=== PATIENT | male | born 1995 | race Caucasian/White ===

== ENCOUNTER → 2018-02-11 | Emergency (ER) | payer OTHER ==
[~2018-02-11] VITALS: Ht 175.3 cm; Wt 74.8 kg
[~2018-02-11] MED LIST: LACTATED RINGERS 1,000 ML IV ONE; ONDA4TAB8 PO; ONDANSETRON 4 MG/2 ML (SDV) Z0FRAN IVP ONE; ONDANSETRON 4 MG/2 ML (SDV) Z0FRAN ONE; RX-ONDANSETRON 4 MG ODT (ZOFRAN) PPK #4 PO STA
--- OUTSIDE RECORDS SUMMARY | 2018-02-11 22:42 | XMS REPORT ---
Author Author [facility] Medical Staff Organization [facility] Address [address] [place], [place] [address] Phone [phone] Care Team Providers Care Assistant Boys Track Coach Name Role Phone HERNANDEZ MCMULLEN, SUKI ENGLE [phone] Summary purpose TRANSITION OF CARE AUTO GENERATION Chief Complaint and Reason for Visit Admit Diagnosis 1 OTHER INJURY OF CHEST [place] Problem list No authorized problems tracked for continuity of care are available for this visit. Encounters No authorized problems tracked for encounter diagnoses are available for this visit. Medications No home medications recorded for this patient visit Allergies, adverse reactions, alerts Allergen Category Ingredient Status Reaction Severity Onset NONE Food Allergy NONE Confirmed or Verified No known drug allergies No known drug allergies No known drug allergies Confirmed or Verified Immunizations No immunizations recorded for this patient visit Relevant diagnostic tests and/or laboratory data RESULTS Routine Urinalysis [id number]:15:00 Result Normal Range Units Color YELLOW Clarity Cloudy Specific [place] 1.028 1.003-1.035 Refractometer Result pH 6.0 4.5-8.0 Glucose NEGATIVE Bilirubin NEGATIVE Ketones 1+ Protein TRACE Urobilinogen 0.2 0-0.2 E.U./dL Nitrites NEGATIVE Blood TRACE Leukocytes Trace WBCs 5-10 RBCs 5-10 Squamous Epithelial 1+ Bacteria 1+ Fine Granular Casts Occasional Routine Cultures [id number]:32:00 Urine Culture Plate Date and Time 02/14/2014 22:32 SourceURINE CULTURE REPORT No Growth After 24 Hours Release Date/Time: 02/16/2014 07:36 CULTURE REPORT No Growth After 48 Hours Release Date/Time: 02/17/2014 07:14 Body Fluid [id number]:15:00 Result Normal Range Units pH 6.0 4.5-8.0 Radiology Results [id number]:37:00 Chest X-Ray - 1 View PACs Image DATE OF EXAM: 2013 RAD 0284-CHEST XRAY 1 VIEW : RADIOLOGY REPORT DATE OF SERVICE: 02/14/14 HISTORY:Multiple injuries. AP CHEST 2230 HOURS The lungs are clear. There is no pneumothorax or pleural effusion. Heart size and pulmonary vessels are normal. The mediastinal contours are normal. IMPRESSION: Normal chest. MD EMIR Mooyd/gc02/15/2014 06:52:00 / 02/15/2014 08:42:22 cc:Dr. Suki Diaz DATE OF EXAM: 2013 RAD 1308-RIB [id number] VIEW : HISTORY: \ IMPRESSION: \ This document has been electronically Signed by: On: DATE OF EXAM: 2013 RAD 0284-CHEST XRAY 1 VIEW : RADIOLOGY REPORT DATE OF SERVICE: 02/14/14 HISTORY:Multiple injuries. AP CHEST 2230 HOURS The lungs are clear. There is no pneumothorax or pleural effusion. Heart size and pulmonary vessels are normal. The mediastinal contours are normal. IMPRESSION: Normal chest. MD EMIR Moody/gc02/15/2014 06:52:02/15/2014 08:42:22 cc:Dr. Suki Diaz DATE OF EXAM: 2013 RAD 1308-RIB [id number] VIEW : HISTORY: \ IMPRESSION: \ This document has been electronically Signed by: On: DATE OF EXAM: 2013 RAD 0284-CHEST XRAY 1 VIEW : RADIOLOGY REPORT DATE OF SERVICE: 02/14/14 HISTORY:Multiple injuries. AP CHEST 2230 HOURS The lungs are clear. There is no pneumothorax or pleural effusion. Heart size and pulmonary vessels are normal. The mediastinal contours are normal. IMPRESSION: Normal chest. MD EMIR Moody/gc02/15/2014 06:52:02/15/2014 08:42:22 cc:Dr. Suki Diaz DATE OF EXAM: 2013 RAD 1308-RIB [id number] VIEW : HISTORY: \ IMPRESSION: \ This document has been electronically Signed by: DERIC BARBOZA On: [id number] Result Amended on 2014-02-17 at 08:18:33. Previous status was MI. Result Amended on 2014-02-17 at 09:37:43. Previous status was MI. LUMBAR SPINE XRAY - 5V PACs Image DATE OF EXAM: 2013 RAD 1050-LUMBAR SPINE XRAY-5 VIEW : RADIOLOGY REPORT DATE OF SERVICE: 02/14/14 HISTORY: Multiple injuries. LUMBAR SPINE 5 VIEWS 2315 HOURS The lumbar vertebrae are normal in height and alignment. There is no fracture or subluxation. The disc spaces and facets are normal. The upper sacrum is unremarkable. IMPRESSION: Negative left ribs. MD EMIR Moody/gc02/15/2014 06:52:00 / 02/15/2014 08:43:59 cc:Dr. Suki Diaz This document has been electronically Signed by: On: DATE OF EXAM: 2013 RAD 1050-LUMBAR SPINE XRAY-5 VIEW : RADIOLOGY REPORT DATE OF SERVICE: 02/14/14 HISTORY: Multiple injuries. LUMBAR SPINE 5 VIEWS 2315 HOURS The lumbar vertebrae are normal in height and alignment. There is no fracture or subluxation. The disc spaces and facets are normal. The upper sacrum is unremarkable. IMPRESSION: Negative left ribs. MD EMIR Moody/gc02/15/2014 06:52:00 02/15/2014 08:43:59 cc:Dr. Suki Diaz This document has been electronically Signed by: On: DATE OF EXAM: 2013 RAD 1050-LUMBAR SPINE XRAY-5 VIEW : RADIOLOGY REPORT DATE OF SERVICE: 02/14/14 HISTORY: Multiple injuries. LUMBAR SPINE 5 VIEWS 2315 HOURS The lumbar vertebrae are normal in height and alignment. There is no fracture or subluxation. The disc spaces and facets are normal. The upper sacrum is unremarkable. IMPRESSION: Negative left ribs. MD EMIR Moody/gc02/15/2014 06:52:00 02/15/2014 08:43:59 cc:Dr. Suki Diaz This document has been electronically Signed by: DERIC BARBOZA On: [id number]:37A Result Amended on 2014-02-17 at 08:20:35. Previous status was MI. Result Amended on 2014-02-17 at 09:37:51. Previous status was MI. RIB XRAYS - UNILAT 3 VIEW PACs Image DATE OF EXAM: 2013 RAD 0284-CHEST XRAY 1 VIEW : RADIOLOGY REPORT DATE OF SERVICE: 02/14/14 HISTORY:Multiple injuries. AP CHEST 2230 HOURS The lungs are clear. There is no pneumothorax or pleural effusion. Heart size and pulmonary vessels are normal. The mediastinal contours are normal. IMPRESSION: Normal chest. MD EMIR Moody/gc02/15/2014 06:52:02/15/2014 08:42:22 cc:Dr. Suki Diaz DATE OF EXAM: 2013 RAD 1308-RIB [id number] VIEW : HISTORY: \ IMPRESSION: \ This document has been electronically Signed by: On: DATE OF EXAM: 2013 RAD 0284-CHEST XRAY 1 VIEW : RADIOLOGY REPORT DATE OF SERVICE: 02/14/14 HISTORY:Multiple injuries. AP CHEST 2230 HOURS The lungs are clear. There is no pneumothorax or pleural effusion. Heart size and pulmonary vessels are normal. The mediastinal contours are normal. IMPRESSION: Normal chest. MD EMIR Moody/gc02/15/2014 06:52:02/15/2014 08:42:22 cc:Dr. Suki Diaz DATE OF EXAM: 2013 RAD 1308-RIB [id number] VIEW : HISTORY: \ IMPRESSION: \ This document has been electronically Signed by: On: DATE OF EXAM: 2013 RAD 1308-RIB [id number] VIEW : RADIOLOGY REPORT DATE OF SERVICE: 02/14/14 HISTORY:Rib injury. LEFT RIBS 3 VIEWS 2230 HOURS The ribs are normal and intact. There is no fracture. There is no periosteal reaction. IMPRESSION: Negative left ribs. MD EMIR Moody/gc02/15/2014 06:52:00 02/15/2014 08:43:10 cc:Dr. Suki Diaz This document has been electronically Signed by: On: DATE OF EXAM: 2013 RAD 1308-RIB [id number] VIEW : RADIOLOGY REPORT DATE OF SERVICE: 02/14/14 HISTORY:Rib injury. LEFT RIBS 3 VIEWS 2230 HOURS The ribs are normal and intact. There is no fracture. There is no periosteal reaction. IMPRESSION: Negative left ribs. MD EMIR Moody/gc02/15/2014 06:52:00 / 02/15/2014 08:43:10 cc:Dr. Suki Diaz This document has been electronically Signed by: On: DATE OF EXAM: 2013 RAD 1308-RIB [id number] VIEW : RADIOLOGY REPORT DATE OF SERVICE: 02/14/14 HISTORY:Rib injury. LEFT RIBS 3 VIEWS 2230 HOURS The ribs are normal and intact. There is no fracture. There is no periosteal reaction. IMPRESSION: Negative left ribs. MD EMIR Moody/gc02/15/2014 06:52:00 / 02/15/2014 08:43:10 cc:Dr. Suki Diaz This document has been electronically Signed by: DERIC BARBOZA On: 20139:37A Result Amended on 2014-02-17 at 08:18:35. Previous status was MI. Result Amended on 2014-02-17 at 08:19:01. Previous status was MI. Result Amended on 2014-02-17 at 08:19:02. Previous status was MI. Result Amended on 2014-02-17 at 09:37:49. Previous status was MI. History of procedures Procedure Code Code Type Description Date Performed Performing Physician 49706 CPT-4 X-RAY EXAM OF RIBS/CHEST 02-14-2014 [facility] 25843 CPT-4 URINALYSIS, AUTO W/SCOPE 02-14-2014 [facility] 22814 CPT-4 URINE CULTURE/COLONY COUNT 02-14-2014 [facility] 18707 CPT-4 X-RAY EXAM OF LOWER SPINE 02-14-2014 [facility] J2360 CPT-4 ORPHENADRINE INJECTION 02-14-2014 [facility] 90991 CPT-4 EMERGENCY DEPT VISIT 02-14-2014 [facility] 25830 CPT-4 THER/PROPH/DIAG INJ, SC/IM 02-14-2014 [facility] 37088 CPT-4 EMERGENCY DEPT VISIT 02-14-2014 [facility] Functional status No functional or cognitive status observations are available for this visit. Vital signs Type Value Date Respiration Rate 20breaths per minute 85-77-248043:00 Pulse 68beats per minute :00 Oxygen Saturation 100% :00 BP Systolic 131mmHg :00 BP Diastolic 56mmHg :00 Temperature 97.4F : Social history No Social History or smoking status observations were recorded for this visit. ( Unknown if ever smoked.) Treatment Plan No treatment plan text is available for this visit. Hospital discharge instructions Dismissal Condition good Disposition on DC home DC Inst/Educ Give yes Med/Side Effects Rev yes
--- OUTSIDE RECORDS SUMMARY | 2018-02-11 22:42 | XMS REPORT ---
Author Author [facility] Medical Staff Organization [facility] Address [address] [place], [place] [address] Phone [phone] Care Team Providers Care Garment Inspector Name Role Phone SUKI NG MD PP [phone] Summary purpose TRANSITION OF CARE AUTO GENERATION Chief Complaint and Reason for Visit No authorized Reason for Visit (Admitting Diagnosis) is available for this visit. Problem list No authorized problems tracked for [...] Relevant diagnostic tests and/or laboratory data RESULTS Radiology Results [id number]:26:00 Chest X-Ray - 2 View PACs Image DATE OF EXAM: Feb 09 2014 RAD 0300-CHEST XRAY 2 VIEW : RADIOLOGY REPORT DATE OF SERVICE: 02/09/14 HISTORY: Patient has chest pain. CHEST 2 VIEWS 2350 HOURS Heart and mediastinum are normal. The lungs are clear. No effusion is seen. IMPRESSION: Negative study of the chest unchanged from 03/30/2009. DO Tamiko Dean 02/10/2014 08:18:00 / 02/10/2014 08:45:22 cc:Dr. Suki Ng This document has been electronically Signed by: On: DATE OF EXAM: Feb 09 2014 RAD 0300-CHEST XRAY 2 VIEW : RADIOLOGY REPORT DATE OF SERVICE: 02/09/14 HISTORY: Patient has chest pain. CHEST 2 VIEWS 2350 HOURS Heart and mediastinum are normal. The lungs are clear. No effusion is seen. IMPRESSION: Negative study of the chest unchanged from 03/30/2009. DO Tamiko Dean 02/10/2014 08:18: / 02/10/2014 08:45:22 cc:Dr. Suki Ng This document has been electronically Signed by: On: DATE OF EXAM: Feb 09 2014 RAD 0300-CHEST XRAY 2 VIEW : RADIOLOGY REPORT DATE OF SERVICE: 02/09/14 HISTORY: Patient has chest pain. CHEST 2 VIEWS 2350 HOURS Heart and mediastinum are normal. The lungs are clear. No effusion is seen. IMPRESSION: Negative study of the chest unchanged from 03/30/2009. Tanner Whitmore DO /co 02/10/2014 08:18:00 / 02/10/2014 08:45:22 cc:Dr. Suki Ng This document has been electronically Signed by: TANNER WHITMORE DO On: Feb 10 2014 12:26P Result Amended on 2014-02-10 at 09:40:44. Previous status was CT. Result Amended on 2014-02-10 at 12:26:49. Previous status was CT. History of procedures No procedures recorded for this patient visit. Functional status No functional or cognitive status observations are available for this visit. Vital signs Type Value Date Respiration Rate 20breaths per minute :15 Pulse 56beats per minute :15 Oxygen Saturation 100% :15 BP Systolic 142mmHg :15 BP Diastolic 62mmHg :15 Temperature 98.8F 47-26-745212:15 Weight 141LB 98-33-793359:10 Social history Type Value Smoking Status NEVER SMOKER Treatment Plan No treatment plan text is available for this visit. Hospital discharge instructions Dismissal Condition good Disposition on DC home DC Inst/Educ Give yes Med/Side Effects Rev yes
--- OUTSIDE RECORDS SUMMARY | 2018-02-11 22:42 | XMS REPORT ---
Author Author Trevor Thibodeaux [facility] Address [address] [place], [place] [address] Care Team Providers Care Senior Tax Accountant Name Role Phone Trevor Thibodeaux PCP Unavailable Allergies and Adverse Reactions Name Reaction Notes No known allergies Plan of Treatment Not available. Medications Not available. Problem List Not available. Vital Signs Date Time BP-Sys(mm[Hg] BP-Adeline(mm[Hg]) HR(bpm) RR(rpm) Temp WT HT HC BMI BSA BMI Percentile O2 Sat(%) 10/25/2016 2:15:00 PM 106 mmHg 64 mmHg 64 bpm 18 rpm 99 F 161.5 lbs 69 in 23.85 kg/m2 1.89 m2 66.7 % 98 % Social History Name Description Comments Tobacco Never smoker lives with parents History of Procedures Not available. Results Summary Not available. History Of Immunizations Not available. History of Past Illness Name Date of Onset Comments No problems Left anterior shoulder pain Oct 25 2016 2:21PM Payers Insurance Name Company Name Plan Name Plan Number Policy Number Policy Group Number Start Date [employer]ign[employer] C[employer]a [id number] N/A History of Encounters Visit Date Visit Type Provider 10/25/2016 Office visit Trevor Thibodeaux NP
--- OUTSIDE RECORDS SUMMARY | 2018-02-11 22:42 | XMS REPORT ---
Author Author [facility] Medical Staff Organization [facility] Address [address] [place], [place] [address] Phone [phone] Care Team Providers Care Sheet Hanger Name Role Phone SUKI NG MD PP [phone] Summary purpose TRANSITION OF CARE AUTO GENERATION [...] tests and/or laboratory data RESULTS Radiology Results [id number]:26:00 Chest X-Ray - 2 View PACs Image [...] chest unchanged from 03/30/2009. Tanner Whitmore DO /mo 02/10/2014 08:18:00 / 02/10/2014 08:45:22 cc:Dr. Suki Ng This document has been electronically Signed by: TANNER WHITMORE DO On: Feb 10 2014 12:26P Result Amended on 2014-02-10 at 09:40:44. Previous status was SC. Result Amended on 2014-02-10 at 12:26:49. Previous status was SC. History of procedures No procedures recorded for this patient visit. Functional status No functional or cognitive status observations are available for this visit. Vital signs Type Value Date Respiration Rate 20breaths per minute :15 Pulse 56beats per minute :15 Oxygen Saturation 100% :15 BP Systolic 142mmHg :15 BP Diastolic 62mmHg :15 Temperature 98.8F 76-60-658872:15 Weight 141LB 68-38-051692:10 Social history Type Value Smoking Status NEVER SMOKER Treatment Plan No treatment plan text is available for this visit. Hospital discharge instructions Dismissal Condition good Disposition on DC home DC Inst/Educ Give yes Med/Side Effects Rev yes
--- OUTSIDE RECORDS SUMMARY | 2018-02-11 22:43 | XMS REPORT | Continuity of Care Document ---
Demographics x Preferred Language Unknown Marital Status Unknown Rastafari Affiliation Unknown Race Unknown Ethnic Group Unknown Author Author [facility] Organization [facility] Address Unknown Phone Unavailable Allergies Active Description Code Type Severity Reaction Onset Reported/Identified Relationship to Patient Clinical Status Yes No known drug allergies [id number] ND N/A N/A Yes NONE Food Allergy N/A N/A Medications There is no data. Problems There is no data. Procedures There is no data. Results Test Result Range UA - 02/14/14 00:00 PH 6.0 4.5-8.0 SG 1.028 1.003-1.035 UABILI NEGATIVE UABLD TRACE UACOLOR YEL UAGLU NEGATIVE UAKET 1+ UALEUK TR UANIT NEGATIVE UAURO 0.2 0-0.2 CLARITY CLD PROTEIN TRACE UA WBC R510 UA RBC R510 SQUAMOUS EPITHELIAL CELLS 1+ BACTERIA 1+ FINE GRANULAR CASTS OCC Encounters ACCT No. Visit Date/Time Discharge Status Pt. Type Provider Facility Loc./Unit Complaint [id number] 02/14/2014 21:46:00 02/14/2014 23:06:00 DIS Emergency SUKI NG [facility] EMR [id number] 02/09/2014 23:04:00 02/10/2014 00:18:00 DIS Emergency TANNER LOFTON [facility] EMR [id number] 09/08/2013 22:41:00 09/09/2013 01:05:00 DIS Emergency TANNER LOFTON [facility] EMR [id number] 08/02/2013 11:44:00 08/02/2013 12:55:00 DIS Emergency TABITHA PIERRE [facility] EMR [id number] 04/13/2013 00:00:00 Document Registration [email or web address] 02/14/2014 21:47:49 [place] Document Registration [id number] 10/25/2016 15:08:23 10/25/2016 23:59:59 [facility] Outpatient Trevor Thibodeaux
[2018-02-11 23:14] LABS: BASOPHILS % (AUTO) 0 % (0-10); EOSINOPHILS % (AUTO) 0 % (0-10); HEMATOCRIT 47 % (40-54); HEMOGLOBIN 16.5 G/DL (13.3-17.7); LYMPHOCYTES # (AUTO) 1.3 X 10^3 (1.0-4.0); LYMPHOCYTES % (AUTO) 11 % (12-44); MEAN CORPUSCULAR HEMOGLOBIN 32 PG (25-34); MEAN CORPUSCULAR HGB CONC 36 G/DL (32-36); MEAN CORPUSCULAR VOLUME 90 FL (80-99); MEAN PLATELET VOLUME 8.9 FL (7.4-10.4); MONOCYTES # (AUTO) 1.3 X 10^3 (0.0-1.0); MONOCYTES % (AUTO) 12 % (0-12); NEUTROPHILS % (AUTO) 78 % (42-75); PLATELET COUNT 278 10^3/uL (130-400); RED BLOOD COUNT 5.17 10^6/uL (4.35-5.85); RED CELL DISTRIBUTION WIDTH 12.4 % (10.0-14.5); WHITE BLOOD COUNT 11.6 10^3/uL (4.3-11.0)
[2018-02-11 23:30] LABS: ALANINE AMINOTRANSFERASE 44 U/L (0-55); ALBUMIN 5.1 GM/DL (3.2-4.5); ALKALINE PHOSPHATASE 88 U/L (40-136); AMYLASE 47 U/L (25-125); BILIRUBIN,TOTAL 0.9 MG/DL (0.1-1.0); BUN/CREATININE RATIO 12; CALCIUM 10.8 MG/DL (8.5-10.1); CARBON DIOXIDE 25 MMOL/L (21-32); CHLORIDE 103 MMOL/L (98-107); CREATININE SERUM 1.18 MG/DL (0.60-1.30); GFR ESTIMATED > 60; GLUCOSE 112 MG/DL (70-105); LIPASE 17 U/L (8-78); POTASSIUM 4.3 MMOL/L (3.6-5.0); SODIUM 143 MMOL/L (135-145); TOTAL PROTEIN 8.2 GM/DL (6.4-8.2)
[2018-02-12 00:42] LABS: BILIRUBIN,URINE NEGATIVE (NEGATIVE); CLARITY,URINE SLIGHTLY CLOUDY; COLOR,URINE AMBER; GLUCOSE, URINE (UA) NEGATIVE (NEGATIVE); KETONES,URINE 2+ (NEGATIVE); LEUKOCYTE ESTERASE ,URINE 1+ (NEGATIVE); NITRITE,URINE NEGATIVE (NEGATIVE); PH,URINE 6 (5-9); PROTEIN,URINE 1+ (NEGATIVE); UROBILINOGEN,URINE NORMAL (NORMAL)
[2018-02-12 00:51] LABS: BACTERIA,URINE LARGE /HPF; RBC,URINE RARE /HPF; SQUAMOUS EPITHELIAL CELL,UR RARE /HPF
[2018-02-12 00:56] LABS: AMPHETAMINE SCREEN, URINE NEGATIVE (NEGATIVE); BARBITURATE SCREEN URINE NEGATIVE (NEGATIVE); BENZODIAZEPINES SCREEN URINE NEGATIVE (NEGATIVE); CANNABINOID SCREEN, URINE NEGATIVE (NEGATIVE); COCAINE SCREEN URINE NEGATIVE (NEGATIVE); METHADONE STAT NEGATIVE (NEGATIVE); METHAMPHETAMINE SCREEN URINE S NEGATIVE (NEGATIVE); OPIATE SCREEN URINE NEGATIVE (NEGATIVE); OXYCODONE STAT NEGATIVE (NEGATIVE); PROPOXYPHENE STAT NEGATIVE (NEGATIVE); TRICYCLIC ANTIDEPRESSANTS SCRE NEGATIVE (NEGATIVE)
--- NOTE | 2018-02-12 01:57 | ED GI ---
General Chief Complaint: Abdominal/GI Problems Stated Complaint: VOMITING Nursing Triage Note: PT PRESENTS TO ER WITH COMPLAINT OF ABD PAIN, NAUSEA AND VOMITING THAT STARTED TODAY. STATES HE IS UNABLE TO KEEP ANYTHING DOWN. Sepsis Screen: No Definite Risk Source of Information: Patient History of Present Illness Date Seen by Provider: Feb 11, 2018 Time Seen by Provider: 22:59 Initial Comments PT ARRIVES VIA POV FROM HOME, WITH MOTHER C/O NAUSEA AND VOMITING ALL DAY, SINCE WAKING THIS AM HAS VOMITED UNKNOWN NUMBER OF TIMES, AND IS UNABLE TO KEEP WATER DOWN. NO DIARRHEA NO FEVER HAS ABDOMINAL CRAMPING JUST BEFORE HE THROWS UP, THEN CRAMPING GOES AWAY. NO ABDOMINAL PAIN AT ANY OTHER TIME C/O HEADACHE HAS NOT URINATED SINCE WAKING THIS AM NO KNOWN SICK CONTACTS OR SUSPICIOUS FOODS TOWARDS END OF ER STAY, PT STATES HE WAS AT A [employer] LAST NIGHT AND DRANK " JUST A COUPLE" OF DRINKS--STATES "10 OR SO" DRINKS.... PCP: DR. MICHAEL DICK--PT IS [employer] STUDENT HERE, LIVES IN HOUSE WITH ROOM MATE. Allergies and Home Medications Allergies Coded Allergies: No Known Drug Allergies (Unverified , 02/11/18) Home Medications Ondansetron 4 Mg Tab.rapdis, 4 MG PO Q4H Prescribed by: IMELDA BRITT on 02/12/18 0200 Patient Home Medication List Home Medication List Reviewed: Yes Review of Systems Review of Systems Constitutional: no symptoms reported; No chills, No diaphoresis, No dizziness, No fever Respiratory: No Symptoms Reported Cardiovascular: No Symptoms Reported Gastrointestinal: See HPI, Abdominal Pain; Denies Constipated, Denies Diarrhea ; Nausea, Poor Appetite, Poor Fluid Intake, Vomiting Genitourinary: See HPI Musculoskeletal: no symptoms reported Skin: no symptoms reported Psychiatric/Neurological: See HPI, Headache; Denies Numbness, Denies Paresthesia, Denies Seizure Endocrine: No Symptoms Reported Hematologic/Lymphatic: No Symptoms Reported Past Nrgufpz-Tesbug-Gpdyif Hx Patient Social History Alcohol Use: Occasionally Uses (HEAVY AT TIMES) Recreational Drug Use: No Smoking Status: Never a Smoker Recent Foreign Travel: No Contact w/Someone Who Travel: No Recent Infectious Disease Expo: No Recent Hopitalizations: No Immunizations Up To Date Tetanus Booster (TDap): Unknown PED Vaccines UTD: Yes Seasonal Allergies Seasonal Allergies: No Past Medical History Surgeries: No Respiratory: No Cardiac: No Neurological: No Genitourinary: No Gastrointestinal: No Musculoskeletal: No Endocrine: No HEENT: No Cancer: No Psychosocial: No Integumentary: No Blood Disorders: No Physical Exam Vital Signs Vital Signs - First Documented 02/11/18 22:52 Temp 97.7 Pulse 54 Resp 16 B/P (MAP) 139/79 (99) Pulse Ox 99 O2 Delivery Room Air Capillary Refill : Less Than 3 Seconds Height/Weight/BMI Height: 5'9.00" Weight: 165lbs. oz. 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, no motor/sensory deficits, alert, normal mood/affect, oriented x 3 Skin: normal color, warm/dry Progress/Results/Core Measures Results/Orders Lab Results Laboratory Tests Test 02/11/18 00:35 02/11/18 23:05 Range/Units Urine Color KEHINDE H Urine Clarity SLIGHTLY CLOUDY Urine pH 6 5-9 Urine Specific Kirby 1.025 H 1.016-1.022 Urine Protein 1+ H NEGATIVE Urine Glucose (UA) NEGATIVE NEGATIVE Urine Ketones 2+ H NEGATIVE Urine Nitrite NEGATIVE NEGATIVE Urine Bilirubin NEGATIVE NEGATIVE Urine Urobilinogen NORMAL NORMAL MG/DL Urine Leukocyte Esterase 1+ H NEGATIVE Urine RBC (Auto) NEGATIVE NEGATIVE Urine RBC RARE /HPF Urine WBC 2-5 /HPF Urine Squamous Epithelial Cells RARE /HPF Urine Crystals NONE /LPF Urine Bacteria LARGE H /HPF Urine Casts NONE /LPF Urine Mucus LARGE H /LPF Urine Culture Indicated YES Urine Opiates Screen NEGATIVE NEGATIVE Urine Oxycodone Screen NEGATIVE NEGATIVE Urine Methadone Screen NEGATIVE NEGATIVE Urine Propoxyphene Screen NEGATIVE NEGATIVE Urine Barbiturates Screen NEGATIVE NEGATIVE Ur Tricyclic Antidepressants Screen NEGATIVE NEGATIVE Urine Phencyclidine Screen NEGATIVE NEGATIVE Urine Amphetamines Screen NEGATIVE NEGATIVE Urine Methamphetamines Screen NEGATIVE NEGATIVE Urine Benzodiazepines Screen NEGATIVE NEGATIVE Urine Cocaine Screen NEGATIVE NEGATIVE Urine Cannabinoids Screen NEGATIVE NEGATIVE White Blood Count 11.6 H 4.3-11.0 10^3/uL Red Blood Count 5.17 4.35-5.85 10^6/uL Hemoglobin 16.5 13.3-17.7 G/DL Hematocrit 47 40-54 % Mean Corpuscular Volume 90 80-99 FL Mean Corpuscular Hemoglobin 32 25-34 PG Mean Corpuscular Hemoglobin Concent 36 32-36 G/DL Red Cell Distribution Width 12.4 10.0-14.5 % Platelet Count 278 130-400 10^3/uL Mean Platelet Volume 8.9 7.4-10.4 FL Neutrophils (%) (Auto) 78 H 42-75 % Lymphocytes (%) (Auto) 11 L 12-44 % Monocytes (%) (Auto) 12 0-12 % Eosinophils (%) (Auto) 0 0-10 % Basophils (%) (Auto) 0 0-10 % Neutrophils # (Auto) 9.0 H 1.8-7.8 X 10^3 Lymphocytes # (Auto) 1.3 1.0-4.0 X 10^3 Monocytes # (Auto) 1.3 H 0.0-1.0 X 10^3 Eosinophils # (Auto) 0.0 0.0-0.3 10^3/uL Basophils # (Auto) 0.0 0.0-0.1 10^3/uL Sodium Level 143 135-145 MMOL/L Potassium Level 4.3 3.6-5.0 MMOL/L Chloride Level 103 98-107 MMOL/L Carbon Dioxide Level 25 21-32 MMOL/L Anion Gap 15 H 5-14 MMOL/L Blood Urea Nitrogen 14 7-18 MG/DL Creatinine 1.18 0.60-1.30 MG/DL Estimat Glomerular Filtration Rate > 60 BUN/Creatinine Ratio 12 Glucose Level 112 H 70-105 MG/DL Calcium Level 10.8 H 8.5-10.1 MG/DL Corrected Calcium 8.5-10.1 MG/DL Total Bilirubin 0.9 0.1-1.0 MG/DL Aspartate Amino Transf (AST/SGOT) 24 5-34 U/L Alanine Aminotransferase (ALT/SGPT) 44 0-55 U/L Alkaline Phosphatase 88 40-136 U/L Total Protein 8.2 6.4-8.2 GM/DL Albumin 5.1 H 3.2-4.5 GM/DL Amylase Level 47 25-125 U/L Lipase 17 8-78 U/L My Orders Orders - IMELDA BRITT DO Saline Lock/Iv-Start (02/11/18 23:04) Amylase (02/11/18 23:04) Cbc With Automated Diff (02/11/18 23:04) Comprehensive Metabolic Panel (02/11/18 23:04) Drug Screen Stat (Urine) (02/11/18 23:04) Lipase (02/11/18 23:04) Ua Culture If Indicated (02/11/18 23:04) Saline Lock/Iv-Start (02/11/18 23:04) Ondansetron Injection (Zofran Injectio (02/11/18 23:15) Saline Lock/Iv-Start (02/11/18 23:04) Lactated Ringers (Lr 1000 Ml Iv Solution (02/11/18 23:04) Ondansetron Injection (Zofran Injectio (02/11/18 23:01) Lactated Ringers (Lr 1000 Ml Iv Solution (02/11/18 23:02) Ondansetron Injection (Zofran Injectio (02/12/18 00:00) Saline Lock/Iv-Start (02/11/18 23:53) Lactated Ringers (Lr 1000 Ml Iv Solution (02/11/18 23:53) Urine Culture (02/11/18 00:35) Rx-Ondansetron Po (Rx-Zofran Po) (02/12/18 02:24) Medications Given in ED Current Medications Medications Dose Ordered Sig/Lux Route Start Time Stop Time Status Last Admin Dose Admin Lactated Ringer's 1,000 ml @ 0 mls/hr Q0M ONCE IV 02/11/18 23:04 02/11/18 23:07 DC 02/11/18 23:08 1,000 MLS/HR Lactated Ringer's 1,000 ml @ 0 mls/hr Q0M ONCE IV 02/11/18 23:53 02/11/18 23:55 DC 02/12/18 00:34 1,000 MLS/HR Ondansetron HCl 8 mg ONCE ONCE IVP 02/11/18 23:15 02/11/18 23:16 DC 02/11/18 23:08 8 MG Ondansetron HCl 8 mg ONCE ONCE IVP 02/12/18 00:00 02/12/18 00:01 DC 02/12/18 00:39 8 MG Vital Signs/I&O 02/11/18 02/12/18 22:52 02:20 Temp 97.7 Pulse 54 86 Resp 16 14 B/P (MAP) 139/79 (99) 139/79 Pulse Ox 99 97 O2 Delivery Room Air Room Air Blood Pressure Mean: 99 Progress Progress Note : Progress Note SYMPTOMS RESOLVED WITH MEDICATIONS AND PT STATES HE FEELS MUCH BETTER PT IS TOLERATING WATER PRIOR TO DISMISSAL Departure Impression Primary Impression: Gastroenteritis Additional Impression: RECENT HEAVY ALCOHOL INTAKE Disposition: HOME, SELF-CARE Condition: Improved Departure-Patient Inst. Referrals: UNKNOWN (PCP/Family) Primary Care Physician Patient Instructions: Viral Gastroenteritis, Adult (DC), Dehydration, Adult (DC ) Add. Discharge Instructions: CLEAR LIQUDS--WATER, BROTH, JELLO, GATORADE TOMORROW IF YOU ARE BETTER, ADD BRATS DIET TO CLEAR LIQUIDS--BANANAS, RICE, APPLESAUCE, TOAST, SALTINES FOLLOW UP WITH YOUR DR TOMORROW IF NO BETTER, RETURN TO ER IF WORSE All discharge instructions reviewed with patient and/or family. Voiced understanding. Scripts Ondansetron (Zofran Odt) 4 Mg Tab.rapdis 4 MG PO Q4H for Nausea/Vomiting, #10 TAB Prov: IMELDA BRITT DO 02/12/18 IMELDA BRITT DO Feb 12, 2018 01:57
[2018-02-12 02:20] VITALS: BP 139/79
== END | disposition home or self-care (01) ==
LOC: ER 22:38
DX: K52.9 Noninfective gastroenteritis and colitis, unspecified (principal); F10.10 Alcohol abuse, uncomplicated
CPT/HCPCS: 36415; 80053; 80306; 81000; 82150; 83690; 85025; 87088

== ENCOUNTER 2019-03-20 19:51 | Emergency (ER) | payer OTHER ==
[~2019-03-20] VITALS: Ht 175.2 cm; Wt 79.5 kg
[~2019-03-20 19:51] MED LIST changes: -LACTATED RINGERS 1,000 ML IV ONE; -ONDANSETRON 4 MG/2 ML (SDV) Z0FRAN IVP ONE; -ONDANSETRON 4 MG/2 ML (SDV) Z0FRAN ONE; -RX-ONDANSETRON 4 MG ODT (ZOFRAN) PPK #4 PO STA
--- NOTE | 2019-03-20 20:59 | ED Lower Extremity ---
General Chief Complaint: Lower Extremity Stated Complaint: R ANKLE PAIN Nursing Triage Note: Pt to ED in wheelchair. Pt reports rolling R ankle while playing basketball. Ankle visibly swollen on outer aspect. Nursing Sepsis Screen: No Definite Risk Source: patient Exam Limitations: no limitations History of Present Illness Date Seen by Provider: Mar 20, 2019 Time Seen by Provider: 21:09 Initial Comments Playing a game of basketball with friends when he twisted his right ankle Onset: this evening Severity: moderate Pain/Injury Location: right ankle Method of Injury: sports injury Modifying Factors: Worse With Movement Allergies and Home Medications Allergies Coded Allergies: No Known Drug Allergies (Unverified , 02/11/18) Home Medications Ondansetron 4 Mg Tab.rapdis, 4 MG PO Q4H Prescribed by: IMELDA BRITT on 02/12/18 0200 Patient Home Medication List Home Medication List Reviewed: Yes Review of Systems Constitutional: see HPI EENTM: see HPI Respiratory: no symptoms reported Cardiovascular: no symptoms reported Genitourinary: no symptoms reported Musculoskeletal: see HPI Skin: no symptoms reported Psychiatric/Neurological: No Symptoms Reported Past Kcbtyve-Cnlxfi-Gkgasc Hx Patient Social History Alcohol Use: Occasionally Uses Recreational Drug Use: No 2nd Hand Smoke Exposure: No Recent Foreign Travel: No Contact w/Someone Who Travel: No Recent Infectious Disease Expo: No Recent Hopitalizations: No Immunizations Up To Date Tetanus Booster (TDap): Unknown PED Vaccines UTD: Yes Seasonal Allergies Seasonal Allergies: No Past Medical History Surgeries: No Respiratory: No Cardiac: No Neurological: No Genitourinary: No Gastrointestinal: No Musculoskeletal: No Endocrine: No HEENT: No Cancer: No Psychosocial: No Integumentary: No Blood Disorders: No Physical Exam Vital Signs Vital Signs - First Documented 03/20/19 20:12 Temp 36.8 Pulse 82 Resp 12 B/P (MAP) 121/75 (90) Pulse Ox 100 O2 Delivery Room Air Capillary Refill : Less Than 3 Seconds Height, Weight, BMI Height: 5'9.00" Weight: 165lbs. oz. 74.550455ld; 25.00 BMI Method:Stated General Appearance: WD/WN, no apparent distress HEENT: PERRL/EOMI, normal ENT inspection Respiratory: no respiratory distress, no accessory muscle use Hips: bilateral hip non-tender, bilateral hip normal inspection, bilateral hip normal range of motion Legs: bilateral leg non-tender, bilateral leg normal inspection, bilateral leg normal range of motion Knees: bilateral knee non-tender, bilateral knee normal inspection, bilateral knee normal range of motion Ankles: right ankle pain, right ankle soft tissue tenderness, right ankle swelling, right ankle other (pain soft tissue swelling and tenderness to palpation over the lateral malleolus. Strong dorsalis pedis pulse.) Neurologic/Psychiatric: alert, normal mood/affect, oriented x 3 Skin: normal color, warm/dry Progress/Results/Core Measures Results/Orders My Orders Orders - JAYCOB JONES APRN Ankle, Right, 3 Views (03/20/19 20:28) Edison Bandage (03/20/19 21:13) Crutches (03/20/19 21:13) Vital Signs/I&O 03/20/19 03/20/19 20:12 21:23 Temp 36.8 36.8 Pulse 82 82 Resp 12 12 B/P (MAP) 121/75 (90) 121/75 (90) Pulse Ox 100 100 O2 Delivery Room Air Room Air Blood Pressure Mean: 90 POS Departure Communication (Admissions) In regards to the questionable avulsion fracture to the medial malleolus, he states that he injured this ankle long time ago but there is no pain no swelling no tenderness to palpation to the medial malleolus tonight. All of the pain and swelling is over the lateral malleolus. Impression Primary Impression: Sprain and strain of ankle Disposition: 01 HOME, SELF-CARE Condition: Stable Departure-Patient Inst. Decision time for Depature: 20:59 Referrals: NED LAYNE MD (PCP/Family) Primary Care Physician Patient Instructions: Ankle Sprain Add. Discharge Instructions: 1. Crutches as needed for pain with walking. When you're able to walk without pain you can stop using the crutches. Wear the Edison wrap at all times except when showering for the next few days until the swelling subsides which may take about a week. If you have persistent pain after 1-2 weeks follow-up with orthopedics to discuss further imaging such as an MRI. JAYCOB JONES APRN Mar 20, 2019 20:59 POS
--- NOTE | 2019-03-20 21:00 | Diagnostic Imaging Report ---
EXAMINATION: Right ankle 3 views HISTORY: Trauma FINDINGS: No comparison is available. There is severe bimalleolar ankle swelling. There is a tiny avulsion fracture at the tip of the medial malleolus. The mortise is intact. Talar dome is normal. IMPRESSION: 1. Tiny avulsion fracture of the tip of the medial malleolus with severe bimalleolar ankle swelling. Dictated by: Dictated on workstation # [id number]
[2019-03-20 21:23] VITALS: BP 121/75
== END 2019-03-20 21:23 | disposition home or self-care (01) ==
LOC: EDUNIT# 19:51 → ER 19:53
DX: S93.401A Sprain of unspecified ligament of right ankle, initial encounter (principal); X50.1XXA Overexertion from prolonged static or awkward postures, initial encounter; Y93.67 Activity, basketball
CPT/HCPCS: 73610